=== PATIENT | male | born 1990 | race Caucasian/White ===

== ENCOUNTER 2016-10-06 12:44 | Emergency (ER) | payer OTHER | END 2016-10-06 13:18 | disposition left against medical advice (07) | LOC: UCEAST 12:44 | DX: J31.0 Chronic rhinitis (principal); K92.0 Hematemesis; Z53.21 Procedure and treatment not carried out due to patient leaving prior to being seen by health care provider ==

== ENCOUNTER 2016-12-08 13:27 | Emergency (ER) | payer OTHER ==
[2016-12-08 13:41] VITALS: BP 134/86
--- NOTE | 2017-01-05 16:48 | UC ---
Dizzy HPI HPI Summary: 26 year old male presents with complains of nausea, vomiting, and fever, - History Of Current Complaint Stated Complaint: VOMITING DIZZY Time Seen by Provider: 12/08/16 13:29 Pain Intensity: 6 Pain Scale Used: 0-10 Numeric - Allergies/Home Medications Allergies/Adverse Reactions: Allergies Allergy/AdvReac Type Severity Reaction Status Date / Time No Known Allergies Allergy Verified 12/08/16 13:34 PMH/Surg Hx/FS Hx/Imm Hx - Surgical History Surgical History: Yes Surgery Procedure, Year, and Place: pinky finger reconstruction 2012 - Family History Known Family History: Positive: None, Cardiac Disease, Hypertension, Diabetes - Social History Alcohol Use: Rare Alcohol Amount: 6 beers Substance Use Type: Marijuana Substance Use Comment - Amount & Last Used: former bath salts - not currently m -juany earlier today. Smoking Status (MU): Heavy Every Day Tobacco Smoker Type: Cigarettes Amount Used/How Often: 1/2ppd Length of Time of Smoking/Using Tobacco: 5 years Have You Smoked in the Last Year: Yes - Immunization History Most Recent Influenza Vaccination: 2013 Most Recent Tetanus Shot: up to date Most Recent Pneumonia Vaccination: unknown Review of Systems Constitutional: Fever, Chills, Fatigue Skin: Negative Eyes: Negative ENT: Negative Respiratory: Negative Cardiovascular: Negative Gastrointestinal: Negative Genitourinary: Negative Motor: Negative Neurovascular: Negative Musculoskeletal: Negative Neurological: Negative Psychological: Negative All Other Systems Reviewed And Are Negative: Yes Physical Exam Triage Information Reviewed: Yes Vital Signs: Initial Vital Signs Temp 37.0 C 12/08/16 13:34 Pulse 98 12/08/16 13:34 Resp 18 12/08/16 13:34 BP 134/86 12/08/16 13:34 Pulse Ox 100 12/08/16 13:34 Eye Exam: Normal ENT Exam: Normal Dental Exam: Normal Neck exam: Normal Neck: Positive: 1 Respiratory Exam: Normal Cardiovascular Exam: Normal Abdominal Exam: Normal Musculoskeletal Exam: Normal Neurological Exam: Normal Psychological Exam: Normal Skin Exam: Normal Dizzy Course/Dx - Differential Dx/Diagnosis Provider Diagnoses: dizziness. nausea. vomitting Discharge - Discharge Plan Condition: Stable Disposition: HOME Patient Education Materials: Acute Nausea and Vomiting (ED) Forms: *School Release Referrals: Shawnee Martinez MD [Primary Care Provider] -
== END 2016-12-08 14:25 | disposition home or self-care (01) ==
LOC: UCEAST 13:27
DX: R42 Dizziness and giddiness (principal); R11.2 Nausea with vomiting, unspecified; R50.9 Fever, unspecified; R53.83 Other fatigue; F12.90 Cannabis use, unspecified, uncomplicated; F17.210 Nicotine dependence, cigarettes, uncomplicated
CPT/HCPCS: 87502; 99211; G0463

== ENCOUNTER 2017-01-05 10:53 | Emergency (ER) | payer OTHER ==
[2017-01-05 11:04] VITALS: BP 140/57
== END 2017-01-05 12:15 | disposition left against medical advice (07) ==
LOC: UCEAST 10:53
DX: R09.89 Other specified symptoms and signs involving the circulatory and respiratory systems (principal); Z53.21 Procedure and treatment not carried out due to patient leaving prior to being seen by health care provider